=== PATIENT | male | born 1950 | race African-American/Black ===

== ENCOUNTER 2017-07-06 14:07 | Inpatient (IN) ==
[2017-07-06] MEDS ORDERED: ASPIRIN 325 MG TABLET PO STA (14:33)
[2017-07-06] MEDS ORDERED: NITROGLYCERIN 2% OINT 1 INCH/GM PACK TOP STA (14:33)
[2017-07-06] MEDS ORDERED: METOPROLOL TARTRATE 5 MG/5 ML VIAL IV STA (14:33)
[2017-07-06] MEDS ORDERED: ASPIRIN 325 MG TABLET ONE (14:45)
[2017-07-06] MEDS ORDERED: METOPROLOL TARTRATE 5 MG/5 ML VIAL IV ONE (14:45)
[2017-07-06] MEDS ORDERED: NITROGLYCERIN 2% OINT 1 INCH/GM PACK TOP ONE (14:46)
[2017-07-06 15:19] LABS: PT Patient Result 10.7 SECS; Partial Thromboplastin Time 25.5 SECS (0-40)
[2017-07-06] MEDS ORDERED: ONDANSETRON 4 MG/2 ML VIAL IV PRN (16:00)
[2017-07-06] MEDS ORDERED: MAGNESIUM SULF RIDER 4 GM in PREMIX 1 EACH IV PRN (16:00)
[2017-07-06] MEDS ORDERED: MAGNESIUM SULF RIDER 2 GM in PREMIX 1 EACH IV PRN (16:00)
[2017-07-06] MEDS ORDERED: POTASSIUM CHLORIDE 20 MEQ TABLET PO PRN (16:00)
[2017-07-06] MEDS ORDERED: MORPHINE 4 MG/1 ML VIAL IV PRN (16:00)
[2017-07-06] MEDS ORDERED: NITROGLYCERIN SL 0.4 MG TABLET SL PRN (16:03)
[2017-07-06] MEDS ORDERED: ENOXAPARIN 60 MG/0.6 ML SYRINGE ONE (16:34)
[2017-07-06] MEDS: ENOXAPARIN 60 MG/0.6 ML SYRINGE SUBCUT SCH (16:39)
[2017-07-06] MEDS: SODIUM CHLORIDE 0.45% 1,000 ML IV SCH (18:20)
[2017-07-06] MEDS: ISOSORBIDE DINITRATE 20 MG TABLET PO SCH (21:33)
[2017-07-06] MEDS: METOPROLOL TARTRATE 50 MG TABLET PO SCH (21:33)
[2017-07-07] MEDS: SODIUM CHLORIDE 0.45% 1,000 ML IV SCH ×2 (03:46→09:15)
[2017-07-07 05:29] LABS: Basophils % 0.3 % (0.0-0.8); Eosinophils # 0.1 10*3/uL (0.0-0.87); Eosinophils % 2.3 % (0.00-10.9); Hematocrit 38.8 VOL% (42.0-52.0); Hemoglobin 12.8 GM/DL (14.0-18.0); Immature Granulocytes % 0.3 %; Immature Granulocytes Absolute 0.02 #; Lymphocytes % 32.7 % (21.2-54.2); Mean Corpuscular Hemoglobin 28 PG (27-34); Mean Corpuscular Volume 84.9 FL (87-102); Monocytes # 0.5 10*3/uL (0.11-0.8); Monocytes % 8.7 % (1.7-12.7); Neutrophils # 3.4 10*3/uL (1.4-7.4); Neutrophils % 55.7 % (38.7-73.9); Platelet Count 306 T/CUMM (130-400); Red Blood Count 4.57 MC/CUMM (3.8-5.5); Red Cell Distribution Width 14.6 % (9.3-17.3); White Blood Count 6.1 T/CUMM (4-12)
[2017-07-07 06:17] LABS: Albumin 2.9 G/DL (3.4-5.0); Bilirubin,Total 0.8 MG/DL (0.2-1.0); Calcium 8.5 MG/DL (8.5-10.1); Osmolality,Calculated 277.3 MOS/KG (273-304); Potassium 4.1 MMOL/L (3.5-5.1); Risk Ratio 4.44; Total Protein 6.6 G/DL (6.4-8.3); VLDL CHOLESTEROL 20.8 MG/DL
[2017-07-07 06:45] LABS: Atypical Lymphocytes Moderate; Eosinophils 2 % (0-10); Lymphocytes 49 % (20-55); Platelet Estimate Adequate; Segmented Neutrophils 43 % (50-85); Target Cells Slight; Total Cells Counted 100
[2017-07-07] MEDS ORDERED: MAGNESIUM SULF RIDER 2 GM in PREMIX 1 EACH IV PRN (08:53)
[2017-07-07] MEDS ORDERED: POTASSIUM CHLORIDE RIDER 10 MEQ in PREMIX 1 EACH IV PRN (08:53)
[2017-07-07] MEDS ORDERED: diphenhydrAMINE CAP 25 MG CAPSULE PO ONE (08:53)
[2017-07-07] MEDS ORDERED: DIAZEPAM 5 MG TABLET PO ONE (08:53)
[2017-07-07] MEDS: LOSARTAN 50 MG TABLET PO SCH (09:11)
[2017-07-07] MEDS: METOPROLOL TARTRATE 50 MG TABLET PO SCH ×2 (09:11→21:33)
[2017-07-07] MEDS: PANTOPRAZOLE 40 MG TABLET PO SCH (09:11)
[2017-07-07] MEDS: ASPIRIN CHEW 81 MG TABLET PO SCH (09:11)
[2017-07-07] MEDS: ISOSORBIDE DINITRATE 20 MG TABLET PO SCH ×2 (09:11→21:33)
[2017-07-07] MEDS: SODIUM CHLORIDE 0.9% 1,000 ML IV SCH ×2 (09:13→18:41)
[2017-07-07] MEDS: ENOXAPARIN 60 MG/0.6 ML SYRINGE SUBCUT SCH (16:18)
[2017-07-08] MEDS: SODIUM CHLORIDE 0.9% 1,000 ML IV SCH ×3 (02:50→17:19)
[2017-07-08] MEDS ORDERED: HEPARIN/NACL 0.9% 2 UNITS/ML 1,000 ML IV ONE (06:48)
[2017-07-08] MEDS ORDERED: DIAZEPAM 5 MG TABLET ONE (06:56)
[2017-07-08] MEDS ORDERED: diphenhydrAMINE CAP 25 MG CAPSULE ONE (06:57)
[2017-07-08] MEDS: ASPIRIN CHEW 81 MG TABLET PO SCH ×2 (07:00→09:22)
[2017-07-08] MEDS: ISOSORBIDE DINITRATE 20 MG TABLET PO SCH ×3 (07:00→20:50)
[2017-07-08] MEDS: METOPROLOL TARTRATE 50 MG TABLET PO SCH ×3 (07:00→20:50)
[2017-07-08] MEDS: LOSARTAN 50 MG TABLET PO SCH ×2 (07:00→09:22)
[2017-07-08] MEDS ORDERED: MIDAZOLAM 2 MG/2 ML VIAL ONE (07:15)
[2017-07-08] MEDS ORDERED: HYDROmorphone 2 MG/1 ML VIAL ONE (07:15)
[2017-07-08] MEDS ORDERED: BIVALIRUDIN 250 MG VIAL IV ONE (07:49)
[2017-07-08] MEDS ORDERED: TICAGRELOR 90 MG TABLET ONE (08:06)
[2017-07-08] MEDS ORDERED: ZALEPLON 5 MG CAPSULE PO PRN (08:14)
[2017-07-08] MEDS: PANTOPRAZOLE 40 MG TABLET PO SCH (10:02)
[2017-07-08] MEDS: TICAGRELOR 90 MG TABLET PO SCH ×2 (10:02→20:50)
[2017-07-08] MEDS ORDERED: ACETAMINOPHEN 325 MG TABLET PO PRN (10:13)
[2017-07-08] MEDS ORDERED: BISACODYL 5 MG TABLET PO PRN (10:13)
[2017-07-08] MEDS ORDERED: ROSUVASTATIN 20 MG TABLET PO SCH (21:00)
[2017-07-09] MEDS: SODIUM CHLORIDE 0.9% 1,000 ML IV SCH (01:12)
[2017-07-09 05:21] LABS: Basophils % 0.2 % (0.0-0.8); Eosinophils # 0.1 10*3/uL (0.0-0.87); Eosinophils % 1.4 % (0.00-10.9); Hematocrit 35.9 VOL% (42.0-52.0); Immature Granulocytes % 0.5 %; Immature Granulocytes Absolute 0.04 #; Lymphocytes # 1.8 10*3/uL (1.4-4.0); Lymphocytes % 21.5 % (21.2-54.2); Mean Corpuscular HGB Conc 33.4 GM/DL (32-36); Mean Corpuscular Hemoglobin 29 PG (27-34); Mean Corpuscular Volume 86.3 FL (87-102); Monocytes # 0.8 10*3/uL (0.11-0.8); Monocytes % 9.1 % (1.7-12.7); Neutrophils # 5.6 10*3/uL (1.4-7.4); Neutrophils % 67.3 % (38.7-73.9); Platelet Count 283 T/CUMM (130-400); Red Blood Count 4.16 MC/CUMM (3.8-5.5); Red Cell Distribution Width 14.2 % (9.3-17.3); White Blood Count 8.3 T/CUMM (4-12)
[2017-07-09 05:45] LABS: Eosinophils 1 % (0-10); Giant Platelets Few; Hypochromasia 1+; Lymphocytes 19 % (20-55); Ovalocytes Slight; Platelet Estimate Adequate; Segmented Neutrophils 74 % (50-85); Total Cells Counted 100
[2017-07-09 06:01] LABS: Blood Urea Nitrogen 7 MG/DL (7-18); Calcium 8.4 MG/DL (8.5-10.1); Glucose 95 MG/DL (74-106); Osmolality,Calculated 272.7 MOS/KG (273-304); Potassium 4.4 MMOL/L (3.5-5.1); Sodium 138 MMOL/L (136-145)
[2017-07-09 06:05] LABS: Troponin I Only 0.144 NG/ML (0.00-0.045)
[2017-07-09] MEDS: ASPIRIN CHEW 81 MG TABLET PO SCH (08:31)
[2017-07-09] MEDS: ISOSORBIDE DINITRATE 20 MG TABLET PO SCH (08:31)
[2017-07-09] MEDS: LOSARTAN 50 MG TABLET PO SCH (08:31)
[2017-07-09] MEDS: PANTOPRAZOLE 40 MG TABLET PO SCH (08:31)
[2017-07-09] MEDS: METOPROLOL TARTRATE 50 MG TABLET PO SCH (08:31)
[2017-07-09] MEDS: TICAGRELOR 90 MG TABLET PO SCH (08:31)
[2017-07-09 11:25] VITALS: BP 108/64
== END 2017-07-09 13:41 | disposition home or self-care (01) | DRG 247 ==
LOC: N.ED 14:07 → N.EDINP 16:00 → N.TELES 17:13
PROVIDERS: ADMIT Internal Medicine Cardiovascular Disease; ATTEND Internal Medicine Cardiovascular Disease
PROC: CLCCHCL (ICD-10-PCS; 2017-07-08 07:45)